=== PATIENT | female | born 1990 | race Caucasian/White ===

== ENCOUNTER 2023-12-14 17:27 | Emergency (ER) | payer SELFPAY ==
[2023-12-14 17:46] VITALS: BP 160/90; O2SAT 100
--- NOTE | 2023-12-14 19:54 | ED Physician Documentation ---
History of Present Illness - Stated complaint Stated Complaint: BACK PX/NAUSEA - Chief complaint Chief Complaint: Back Pain - Additonal information Additional information: 33-year-old female presents with 1 month history of neck pain radiating to jaw and down her right arm. Denies falls, trauma to the neck. States has been taking Methocarbamol without relief. Denies fever, chills. Review of Systems Constitutional: denies: Fever Eyes: denies: Loss of vision Ears: denies: Loss of hearing Nose: denies: Rhinorrhea / runny nose Throat: denies: Dental pain / toothache Cardiac: denies: Chest pain / pressure GI: denies: Abdominal Pain : denies: Dysuria Musculoskeletal: reports: Neck pain Neurologic: denies: Generalized weakness PD PAST MEDICAL HISTORY - Past Medical History Past Medical History: Yes Psych: Depression, Anxiety - Past Surgical History Past Surgical History: No - Allergies Allergies/Adverse Reactions: Allergies Allergy/AdvReac Type Severity Reaction Status Date / Time No Known Drug Allergies Allergy Verified 12/14/23 17:33 - Social History Does the pt smoke?: No Smoking Status: Never smoker Does the pt drink ETOH?: No Does the pt have substance abuse?: No - Immunizations Immunizations are current?: Yes - POLST Patient has POLST: No PD ED PE NORMAL - Vitals Vital signs reviewed: Yes - General General: Alert and oriented X 3 - HEENT HEENT: Atraumatic - Neck Neck: Supple, no meningeal sign, No bony TTP, No adenopathy, Other (Positive Spurling sign with rightward deviation of head.) - Cardiac Cardiac: RRR - Respiratory Respiratory: No respiratory distress - Abdomen Abdomen: Normal bowel sounds Results - Vitals Vitals: Vital Signs - 24 hr 12/14/23 17:33 Temperature 36.8 C Heart Rate 100 Respiratory 16 Rate Blood Pressure 160/90 H O2 Saturation 100 Oxygen O2 Source Room air PD Medical Decision Making - ED course Complexity details: considered differential, d/w patient ED course: 33-year-old female presents with neck pain x 1 month. Endorses for pain that occasionally radiates up into her jaw and shoots down her right arm. Afebrile, hemodynamically stable. No focal lateralizing neurologic deficits although patient does have positive Spurling sign with rightward deviation, ear to shoulder. This is consistent with cervical radiculopathy. No history of trauma so no indication for CT or imaging of the cervical spine at this time. Will initiate Course of Flexeril, transition away from methocarbamol, start Medrol Dosepak, Toradol and provide ondansetron for nausea control. Will refer to primary care for further evaluation and treatment.
[2023-12-14] MEDS: CYCLOBENZAPRINE 10 MG TABLET PO STA (20:01)
[2023-12-14] MEDS: DEXAMETHASONE 10 MG/ML VIAL PO STA (20:01)
[2023-12-14] MEDS: CHERRY SYRUP 10 ML UDC PO ONE (20:01)
[2023-12-14] MEDS: KETOROLAC 10 MG TABLET PO PRN (20:04)
== END 2023-12-14 20:19 | disposition home or self-care (01) ==
LOC: ED 17:27
DX: M54.2 Cervicalgia (principal); R68.84 Jaw pain; M79.601 Pain in right arm
CPT/HCPCS: 99283; A9270

== ENCOUNTER 2023-12-17 18:17 | Outpatient (CLI) | payer BC ==
--- NOTE | 2023-12-18 15:17 | XRAY Report ---
PROCEDURE: Cervical Spine 2-3V INDICATIONS: CERVICAL RADICULOPATHY TECHNIQUE: 3 view(s) of the cervical spine were acquired. COMPARISON: None. FINDINGS: Bones: No fractures or dislocations to the C7 level. The lateral masses of C1 appear intact on the odontoid view. Soft tissues: No prevertebral soft tissue swelling. IMPRESSION: No acute osseous findings Reviewed by: Kyree Mason MD on 12/18/2023 3:16 PM PDT Approved by: Kyree Mason MD on 12/18/2023 3:16 PM PDT Station ID: [id number]
--- NOTE | 2023-12-18 15:30 | XRAY Report ---
PROCEDURE: Thoracic Spine 3V INDICATIONS: MUSCLE STRAIN TECHNIQUE: 3 views of the thoracic spine were acquired. COMPARISON: None. FINDINGS: Bones: No fracture or subluxation seen. No suspicious bony lesions. Visualized ribs appear intact w here visualized. Soft tissues: No paravertebral stripe thickening. IMPRESSION: No acute bony abnormality. No significant degenerative change. Reviewed by: Kyree Mason MD on 12/18/2023 3:28 PM PDT Approved by: Kyree Mason MD on 12/18/2023 3:28 PM PDT Station ID: [id number]
== END 2023-12-17 18:18 | disposition home or self-care (01) ==
LOC: DI 18:17
DX: M54.12 Radiculopathy, cervical region (principal); S29.019A Strain of muscle and tendon of unspecified wall of thorax, initial encounter

== ENCOUNTER 2023-12-17 18:26 | Outpatient (CLI) | payer BC ==
[2023-12-17 19:32] LABS: BASOPHILS # (AUTO) 0.1 10^3/uL (0.0-0.1); BASOPHILS % (AUTO) 0.7 %; EOSINOPHILS % (AUTO) 0.3 %; HCT - HEMATOCRIT 29.8 % (37.0-47.0); HGB - HEMOGLOBIN 8.2 g/dL (12.0-16.0); LYMPHOCYTES % (AUTO) 26.5 %; MEAN CORPUSCULAR HEMOGLOBIN 19.3 pg (27.0-31.0); MEAN CORPUSCULAR HGB CONC 27.5 g/dL (32.0-36.0); MEAN CORPUSCULAR VOLUME 70.3 fL (81.0-99.0); MONOCYTES # (AUTO) 0.7 10^3/uL (0.0-1.0); MONOCYTES % (AUTO) 6.6 %; NEUTROPHILS # (AUTO) 7.4 10^3/uL (1.5-6.6); NEUTROPHILS % (AUTO) 65.5 %; PLT - PLATELET COUNT 280 10^3/uL (130-450); RED BLOOD COUNT 4.24 10^6/uL (4.20-5.40); RED CELL DISTRIBUTION WIDTH 15.6 % (12.0-15.0); WHITE BLOOD COUNT 11.3 x10^3/uL (4.8-10.8)
[2023-12-17 20:15] LABS: SLIDE REVIEW? Indicated
[2023-12-17 20:36] LABS: PLATELET ESTIMATE, MANUAL NORMAL (130-450,000) (NORMAL); PLATELET MORPHOLOGY NORMAL APPEARANCE (NORMAL)
== END 2023-12-17 18:27 | disposition home or self-care (01) ==
LOC: LAB 18:26 → DI 18:27
DX: T50.905A Adverse effect of unspecified drugs, medicaments and biological substances, initial encounter (principal); M54.12 Radiculopathy, cervical region; S29.019A Strain of muscle and tendon of unspecified wall of thorax, initial encounter
CPT/HCPCS: 36415; 84484; 85025